=== PATIENT | male | born 1945 | race Caucasian/White ===

== ENCOUNTER 2018-08-28 08:02 | Inpatient (IN) | payer MEDICARE, OTHER, SELFPAY ==
[2018-06-06 13:35] VITALS: BMI 32.3
[2018-08-19 12:55] VITALS: BMI 32.3
[2018-08-28] VITALS (20 sets, daily range): BP systolic 93–135; BP diastolic 57–94; PULSE 75–117; RESP 10–19; TEMP 36.2–37.3; O2SAT 93–97; BMI 33.0
[2018-08-28] MEDS: LACTATED RINGERS 1,000 ML 42 ML IV ×2 (08:54→11:50)
[2018-08-28] MEDS: VANCOMYCIN 1,000 MG/200 ML FROZ.PIGGY 200 MG IV ×2 (09:11→21:16)
--- NOTE | 2018-08-28 10:00 | DI.RAD.S_ITS ---
PROCEDURE: XR SHOULDER RT MIN 2V INDICATIONS: prosthesis placement TECHNIQUE: 2 views of the shoulder were acquired. COMPARISON: [facility] [place]quang Grigsby, CR, XR SHOULDER 2+ VIEWS RIGHT, 05/27/2017, 13:55. FINDINGS: Bones: Postsurgical changes compatible with right shoulder is noted. Orthopedic hardware is intact. No lucencies at the bone hardware interface. Soft tissues: No suspicious soft tissue calcifications. IMPRESSION: Expected postsurgical change for right shoulder arthroplasty. Dictated by: Brenda Huntley MD, PhD on 08/28/2018 at 15:02 Approved by: Brenda Huntley MD, PhD on 08/28/2018 at 15:03
[2018-08-28] MEDS: MIDAZOLAM 2 MG/2 ML VIAL IV (10:12)
[2018-08-28] MEDS: fentaNYL 100 MCG/2 ML INJ 50 MCG IV ×2 (10:12→14:13)
--- NOTE | 2018-08-28 10:14 | SUR.PREOP ---
Block start time [0955] . Monitoring initiated and maintained throughout procedure. Oxygen and medications given per anesthesiologist instructions. Patient remained stable throughout procedure, no adverse reactions noted. Block end time [1006].
[2018-08-28] MEDS: GENTAMICIN 200 MG in SODIUM CHLORIDE 0.9% 100 ML 105 ML IV (10:20)
--- NOTE | 2018-08-28 10:22 | PM.PREOP ---
Pre-operative Note Interval Note History & Physical reviewed/Exam performed by Physician: Yes Changes to H&P: No
--- NOTE | 2018-08-28 11:00 | SUR.OPER ---
Beach chair with skytron shoulder positioner. Lower body on padded OR bed. Head in foam padded head cradle, secured with straps. Non-operative arm secured <90 degrees abduction. Pillow under knees. Safety belt at thigh. Cloth tape over blanket over lower legs.
[2018-08-28] MEDS: LIDOCAINE 1% W/EPI INJ 20 ML INJ (11:07)
--- NOTE | 2018-08-28 11:13 | PM.PROC.1 ---
Procedures Date/Time Date of procedure: 08/28/18 Time of procedure: 07:55 Nerve Block Time out performed: Yes Location of anesthetic used: Local: Lido 1%-25g; Block: Ropivacaine 0.5% 15ml + Lido 2% w/ epi 5ml Amount of anesthesia used (mL): 20 Nerve blocks: brachial plexus (right Interscalene Brachial Plexus Block) Procedure successful: Yes Patient tolerated procedure: well and no complications Complications: none Additional comments: Consent obtained. Supine position with HOB elevated; pillow removed to optimize access. Monitors and O2 per NC applied. IV sedation: fentanyl 50 mcg + midazolam 1mg. Nerve stimulator, ultrasound visualization amd sterile technique utilized. Chloroprep and sterile drape. Landmarks ID'd and plexus viewed on ultrasound. Lido 1% skin wheal with 25g needle. 50mm Stimex needle too short so changed to 100mm needle. Deltoid twitch to 0.4 mAmp; pulled needle back 1mm. Negative aspiration and test dose. Total volume given 20ml: Ropivacaine 0.5% 15ml + Lidocaine 2% with epi 1:100K 5ml.
--- NOTE | 2018-08-28 13:40 | PM.OP.1 ---
Operative Date/Time/Diagnoses Date of procedure: 08/28/18 Time of procedure: 10:30 Pre-op diagnosis: Right shoulder end-stage arthritis Post-op diagnosis: same Procedure & Clinicians Procedure: Right total shoulder arthroplasty Same procedure as scheduled: Yes Indications: End-stage arthritis to the right shoulder Surgeon: Eh Andrews Die Casting Machine Operator: Khalida Mars Anesthesia Type: General and Peripheral nerve block Operative Notes Closure Type: primary Prosthetic devices, grafts, tissues, transplants, or devices: 6 mm stem with a medium glenoid and a 54/21 head Applied: drain(s) and implant(s) Estimated Blood Loss (mL): 100 Procedure in detail: On date of service, Patient was met in the holding area. The operative site was signed and witnessed by the OR staff. The surgeries once again discussed with the patient and any remaining questions they had were answered fully. Patient was taken back to the operating theater and placed on the operating table in a supine position. Great care was taken to ensure that all bony prominences were properly padded. Patient was then placed into the beach chair position. The head and neck were properly positioned and secured. A timeout was performed verifying patient's name, procedure, and the operative site. The upper extremity was then prepped and draped in the normal sterile fashion. Previously, the bony anatomy and incision were marked out as well as injected with Marcaine with epinephrine. A deltopectoral approach was performed. 10 blade was used to incise the skin and fascial tissue. A deep knife was used to continue sharp dissection until the cephalic vein was visualized. The cephalic vein was dissected free allowing us to expose the deltopectoral interval. This interval was then developed. A Whipple elevator was used to free up the deltoid of any scarring both superficially as well as deeply. The vein and the deltoid were taken laterally while the pectoralis was taken medially. This gave us good visualization of the strap muscles. The clavipectoral fascia was removed and the strap muscles were then retracted medially with the pectoralis. This gave us stabilization of the subscapularis. The circumflex vessels were ligated and the subscapularis was sharply excised off the lesser tuberosity and then tagged. Once the subscapularis was released we're able to dislocate the shoulder. Patient had end-stage arthritic changes to the humeral head as well as the glenoid with large osteophytes anterior inferiorly as well as posteriorly. A Ronger was then used to remove the osteophytes. Next, cutting guide was placed and a saw was used to remove the humeral head. Once the head was removed it was templated. A starting awl was then used to find the canal and then the humerus was reamed and broached. Trial stem was placed and a variety of heads were trialed. A protector placed for the osteotomy was then placed and and we turned our attention back to the subscapularis as well as the glenoid. The subscapularis was freed up and a 360? fashion. The degenerative anterior and inferior capsular tissue was removed. This was followed by removing the degenerative labral tissue from around the glenoid as well as the biceps insertion. This gave us good visualization of the glenoid. Glenoid trials were used until we found the appropriate fit and curvature. Next the center hole was drilled followed by reaming of the glenoid. The wound was copiously irrigated after reaming. Next the pegs were drilled and a trial glenoid was impacted into place. Once we were satisfied with the preparation of the glenoid, the final component was cemented into place. This was followed by impaction. We Return to our attention back to the humerus. The protector plate was removed and heads were trialed once again and so we found the appropriate fit. The trials were removed and bone tunnels were made into the humeral neck. #2 FiberWire were passed through the bone tunnels for eventual subscapularis repair. The final stem and head were impacted into place and the shoulder was reduced. It was taken through range of motion and was felt to be stable in both posterior translation as well as external and internal rotation with abduction. The subscapularis was repaired back to the lesser tuberosity through the bone tunnels. This was then reinforced with soft tissue repair. Part of the rotator interval was then closed. A drain was placed and the rest of the wound was closed in a layered fashion. The shoulder was then cleaned dried and dressed and the patient was taken to the PACU in stable condition. Patient will follow our postoperative protocol for total shoulder arthroplasty. S Complications: none Condition: stable Disposition: PACU Plan for aftercare: Patient will follow our postoperative protocol for total shoulder arthroplasty
--- NOTE | 2018-08-28 15:22 | PT.IPTN ---
Current Diagnoses Primary osteoarthritis, right shoulder (08/28/18) Surgery Performed Operation Date: 08/28/18 10:00 Actual Procedures p Total Shoulder Arthroplasty(Right) - Eh Andrews MD Physical Therapy Treatment Note M3 PT-IP Subjective Start: 08/28/18 16:13 Freq: NEEDED Status: Active Protocol: Document 08/28/18 15:22 AB (Rec: 08/28/18 16:19 AB [id number]) Subjective Physical Therapy Visit Type Notes pt still not on the acute floor yet.
[2018-08-28] MEDS: LACTATED RINGERS 1,000 ML 125 ML IV (16:06)
[2018-08-28] MEDS: ACETAMINOPHEN 325 MG TABLET 975 MG PO ×2 (17:04→22:42)
[2018-08-28] MEDS: DOCUSATE 100 MG CAPSULE PO (21:16)
--- NOTE | 2018-08-28 22:34 | PC.NURSE ---
Pt arrived at 0355 in AC floor. pt A&OX3. 93%RA. no n/v. no dizziness or chest pain. HR reg tachy 90-105, goes up to 115 when moving around. SBA to the BR. IVF infusing. Pt's hemovac output 260cc. notified Dr. Abraham, VTO for 1 time bolus of [address]cc. Dr. Abraham aware about pt's HR. call light in reach.
[2018-08-28] MEDS: SODIUM CHLORIDE 0.9% 500 ML 1000 ML IV (22:47)
[2018-08-29] MEDS: LACTATED RINGERS 1,000 ML 125 ML IV (02:41)
[2018-08-29] MEDS: OXYCODONE IR 5 MG TABLET PO ×3 (04:45→11:53)
[2018-08-29 04:52] VITALS: BP 120/74; PULSE 90; RESP 16; TEMP 36.8; O2SAT 93
[2018-08-29 06:01] LABS: Hematocrit 30.4 % (41-53); Hemoglobin 10.5 g/dL (13.5-17.5); Mean Corpuscular HGB Conc 34.4 % (30-36); Mean Corpuscular Hemoglobin 27.2 PG (26-34); Mean Corpuscular Volume 79.1 fL (80-100); Platelet Count 271 X10^3/uL (150-400); Red Blood Cell Count 3.85 X10^6/uL (4.5-5.9); Red Cell Distribution Width 16.5 % (11.6-14.8); White Blood Cell Count 13.1 X10^3/uL (4.5-11.0)
--- NOTE | 2018-08-29 06:40 | PC.NURSE ---
Did not sleep well last night. Stayed in the recliner all shift, declined Lorazepam offered all shift. Medicated with 5 mg. of Percolone @ 0445. No C/O pain this morning. Will cont. POc & monitor.
[2018-08-29 07:30] VITALS: BP 115/73; PULSE 86; RESP 17; TEMP 36.6; O2SAT 93
[2018-08-29] MEDS: ACETAMINOPHEN 325 MG TABLET 975 MG PO (08:13)
[2018-08-29] MEDS: DOCUSATE 100 MG CAPSULE PO (08:13)
--- NOTE | 2018-08-29 08:31 | P.DS_ITS ---
History of Present Illness Date Patient Seen: 08/29/18 Time Patient Seen: 08:31 Chief complaint: right shoulder [id number] Narrative: Right shoulder end-stage arthritis Discharge Providers Date of admission: 08/28/18 08:02 Discharge Date: 08/29/18 Primary care physician: Werner Morales MD Consults: 08/28/18 13:32 Consult to Discharge Planning Routine Comment: Consult to Physical Therapy Evaluate & Treat Comment: Physician Instructions: Evaluate and Treat Consult to Respiratory Therapy Evaluate & Treat Comment: Physician Instructions: Evaluate and treat Discharge provider: Aga Watt PA-C Summary Discharge Diagnosis: s/p TSA Hospital Course: Óscar was admitted for right total shoulder arthroplasty with Dr. Andresw, and he consented to procedure. On postop day 1. Patient was ready to discharge home. He was eating and voiding with out difficulty or assistance. Health It Specialist strength was strong and equal. He has worked with physical therapy. Exam Vital Signs (past 8 hours): - 08/29/18 04:52 Temperature 98.2 F Pulse Rate 90 Respiratory Rate 16 Blood Pressure 120/74 Pulse Oximetry 93 Fraction of Inspired Oxygen 21 Oxygen Delivery Method Room Air Oxygen Flow Rate 0 Narrative Exam Narrative: Patient is sitting up in bedside chair no acute distress. He is alert and oriented x3. Dressing on right shoulders CDI. Hemovac drain was removed and Aquacel applied. data reporting analyst strength is strong and equal. Sensation intact light touch throughout bilateral lower extremities except for right pointer finger and thumb. Pain was well-controlled last night. Objective Labs Result Diagrams: 08/29/18 05:29 Labs: Laboratory Results - last 24 hr 08/29/18 05:29 WBC 13.1 H RBC 3.85 L Hgb 10.5 L Hct 30.4 L MCV 79.1 L MCH 27.2 MCHC 34.4 RDW 16.5 H Plt Count 271 Discharge Plan Discharge Plan Patient Disposition: Home Discharge comment: DC after PT Discharge Med Rec/Prescriptions Prescriptions: New acetaminophen 325 mg Tablet 975 mg PO TID Qty: 60 RF: 0 docusate sodium 100 mg Capsule 100 mg PO BID Qty: 60 RF: 0 oxycodone 5 mg Tablet 5 mg PO Q3HR PRN (Reason: Pain, Moderate (4-6)) Qty: 60 RF: 0 hydroxyzine pamoate [Vistaril] 25 mg capsule 25 mg PO Q6-8H PRN (Reason: nausea and vomiting) Qty: 30 RF: 0 ondansetron 4 mg Tablet,Disintegrating 4 mg PO Q6HR Qty: 15 RF: 0 aspirin 81 mg tablet,delayed release (DR/EC) 81 mg PO BID Qty: 60 RF: 0 Continued acetaminophen [Tylenol Extra Strength] 500 mg Tablet 1,000 mg PO BEDTIME RF: 0 chlorpheniramine maleate 4 mg Tablet 4 mg PO BID PRN (Reason: seasonal allergies) RF: 0 fluticasone propionate [Aller-Doe] 50 mcg/actuation [place],Suspension 1 spray INTRANASAL DAILY RF: 0 Follow up/Referrals: Eh Andrews MD [Physician] - Provider Discharge Instructions Diet: Diet as Tolerated Cold/Heat Therapy: as needed Skin/Wound/Dressing Care Report to your healthcare provider any signs of infection, such as:: chills, fever and increased pain Dressing: Leave in place until post op appointment Visit Report/Discharge Packet Instructions: How to Prevent Falls, DI for Postoperative Pain, DI for Shoulder Replacement Visit Report Forms: Stroke Signs & Symptoms Discharge Data Primary Care Provider: Werner Morales Attending Provider: Eh Andrews Admit Date/Time: 08/28/18 08:02 Quality VTE Deep Vein Thrombosis/Pulmonary Embolism Present on Admission: No
--- NOTE | 2018-08-29 09:15 | PT.IIE ---
Current Diagnoses Primary osteoarthritis, right shoulder (08/28/18) Surgery Performed Operation Date: 08/28/18 10:00 Actual Procedures p Total Shoulder Arthroplasty(Right) - Eh Andrews MD Surgical History (Last Updated 06/06/18 @ 14:12 by Gabriela Zee, RN) H/O: vasectomy (Acute ~1981) History of surgical removal of ganglion cyst (Acute) Hx of arthroscopy of left knee (Acute ~1997) Hx of tonsillectomy (Acute) Status post left unicompartmental knee replacement (Acute) Status post right unicompartmental knee replacement (Acute) Medical History (Last Updated 08/19/18 @ 13:06 by Gabriela Zee RN) Infection of mouth (Acute ~05/2018) Seasonal allergies (Acute) Aortic root dilation (Acute) Arthritis (Acute) Chronic right shoulder pain (Acute) Dyshidrotic foot dermatitis (Acute) Frequent unifocal premature ventricular contractions (Acute) IFG (impaired fasting glucose) (Acute) Normal colonoscopy (Acute ~2007) Rapid heart rate (Acute) Physical Therapy Inpatient Evaluation/Re-Eval M1 PT/OT-IP Prior Functional Status Start: 08/28/18 16:13 Freq: NEEDED Status: Active Protocol: Document 08/29/18 09:15 AB (Rec: 08/29/18 12:35 AB [id number]) Medical Review Prior Functional Status Medical History Reviewed Yes Communication able to make needs known Mobility and Gait stated that he is independent with all mobilities and ambulation without AD Social History Household Members spouse Living Arrangements House Number of Floors (Floors) One Floor Number of Stairs To Enter/Railing? 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 pt has a hurrycane pt plans on sleeping on a recliner M2 PT-IP Current Condition Start: 08/28/18 16:13 Freq: NEEDED Status: Active Protocol: Document 08/29/18 09:15 AB (Rec: 08/29/18 12:35 AB [id number]) Physical Therapy Current Condition Current Condition Evaluation Date 08/29/18 Treatment Diagnosis s/p R TSA; difficulty in walking Onset Date 08/28/18 Precautions Shoulder Precautions Sling PROM Internal Rotation to Body No External Rotation No Abduction Forward Flexion to 90 degrees Pendulums Weight Bearing Status Weight Bearing Status Non-Weight Bearing Allowed Weight Bearing Amount (enter % NWB RUE or #) (%) M3 PT-IP Subjective Start: 08/28/18 16:13 Freq: NEEDED Status: Active Protocol: Document 08/29/18 09:15 AB (Rec: 08/29/18 12:35 AB [id number]) Subjective Physical Therapy Visit Type Type Initial Evaluation Visit Start Time 09:15 Visit Stop Time 09:57 Total Visit Minutes 27 Number of PRODUCTION CONTROLLER Visits 0 Physical Therapy Visit Comments Patient Comments pt agrees to do PT Therapy Pain Assessment Pain When Pain Assessed At Rest Pain Present Pain Present Pain Reported Location Right Shoulder Intensity 2 Scale Used Numeric (1 - 10) Pain Management Techniques Apply Cold Re-positioning Timing of Activity with Medications M4 PT-IP Mobility and Gait Start: 08/28/18 16:13 Freq: NEEDED Status: Active Protocol: Document 08/29/18 09:15 AB (Rec: 08/29/18 12:35 AB [id number]) PT-Transfer Assessment Sit to and From Stand Sit to and from Stand Standby Assistance Equipment Transfer Assistive Device Gait Belt Orthotic/Prosthetic Devices or Brace: Yes Transfer Ability Level of Assist Standby Assistance Comments Mobility Comments pt stated that he will sleep on his recliner and does not want to do bed mobility training. Gait Assessment Gait Gait Assistance Required: Standby Assistance Distance (Feet) 125 Able to Maintain Weight Bearing Status Yes During Gait Assistive Devices Assistive Device Gait Belt Orthotic/Prosthetic Devices or Brace: Yes Gait Deviations General Gait Pattern Antalgic Factors Limiting Gait Function Factors Limiting Gait Function Decreased Activity Tolerance Decreased Strength Limited Range of Motion Pain Poor Balance Stair Climbing Assessment Evaluation Level of Assist On Stairs Standby Assistance Devices Stair Climbing Assistive Devices Right Railing Technique/Endurance Stair Climbing Direction Ascend and Descend Stair Climbing Technique Step Over Step Step to Step Number of Steps Climbed 3 Query Text: Stair Climbing Set # Repetitions (reps) 3 PT-Balance Assessment Sitting Balance and Reactions Static Sitting Balance Ability Good Dynamic Sitting Balance Ability Good Standing Balance and Reactions Static Standing Balance Ability Good Dynamic Standing Balance Ability Fair Device Used without AD M5 PT-IP Objective Assessments Start: 08/28/18 16:13 Freq: NEEDED Status: Active Protocol: Document 08/29/18 09:15 AB (Rec: 08/29/18 12:35 AB [id number]) Orientation Orientation/Cognition Level of Alertness Alert Orientation Name Age Birthday Month Date Year Day of Week Place Situation Language Function Ability No Deficits Noted Safety Awareness Understands Safety Issues Memory Description No Deficits Noted Gross Range of Motion Upper Extremity ROM Assessment Right Impaired Impairments RUE on sling Lower Extremity ROM Assessment Within Functional Limits Strength Lower Extremity Strength Assessment Within Functional Limits Coordination Assessment Gross Coordination Gross Coordination WNL Sensation Assessment Sensation Gross Sensation WNL Muscle Tone Muscle Tone WNL Yes M6 PT-IP Treatment Start: 08/28/18 16:13 Freq: NEEDED Status: Active Protocol: Document 08/29/18 09:15 AB (Rec: 08/29/18 12:35 AB [id number]) Physical Therapy Treatment Exercises Exercises Elbow Flexion/Extension Wrist ROM Hand ROM Education Education Provided Precautions Weight Bearing Status Post-Op Packet Safety Brace Education [place] Patient Other Treatments Other Treatment Performed pt educated on sling management; pendulum exercises M7 PT-IP Assessment and Plan Start: 08/28/18 16:13 Freq: NEEDED Status: Active Protocol: Document 08/29/18 09:15 AB (Rec: 08/29/18 12:35 AB [id number]) PT Summary Assessment and Plan Potential Rehabilitation Potential Good Status of Condition at Evaluation Stable Summary Impairments Pain ROM Strength Balance Coordination Sensation Bed Mobility Transfers Gait Activity Tolerance Assessment Summary pt requiring SBA with mobility and plans to go home with spouse to assist. pt doing well with mobility and may go home when medically stable. Goals Transfer Goal Independent Gait Goal Independent Gait Distance 250 Other Goals up/down 2 steps with R rail ascending Days to Meet Goals 3 Frequency of Treatment Frequency Of Treatment Twice a Day Treatment Plan Physical Therapy Treatment Plan Bed Mobility Training Transfer Training Gait Training Therapeutic Exercise Balance Retraining Post Op Education Discharge Planning Hot or Cold Pack Neuromuscular Re-ed Coordination Retraining Manual Therapy Other Recommendations and Next Treatment ambulation, stair climbing Focus Recommendations To Nursing Amount of Assist Needed Standby Assistance Discharge Recommendations PT Discharge Recommendations Home with Assistance Outpatient PT
--- NOTE | 2018-08-29 10:11 | PC.NURSE ---
Addendum entered by Lauren Lewis R.N. 08/29/18 13:00: Pt left unit via wheelchair at 1256 in no distress. Pt's present to drive pt home. Original Note: Addendum entered by Lauren Lewis R.N. 08/29/18 12:42: At 1220, Reviewed discharge summary with pt and his . All questions answered, no further voiced concerns. has all belongings. is ready to go home. Right shoulder aquacel dressing CDI, dressing over old hemovac site CDI. Original Note: Addendum entered by Lauren Lewis R.N. 08/29/18 10:40: Discharge summary packet given to pt to pre-read, will review when his arrives for discharge. Pt states he already has his follow up appointments made. Original Note: Day Shift- PRN Oxycodone given for 2/10 pain with rest and 5/10 pain with movement to right shoulder. Pt tolerating regular diet. Denies nausea. OOB to chair early this AM, Ambulates to BR with SBA, steady gait. Right shoulder dressing removed at 1000, Incision well approximated with Steri-strips intact. Scant drainage noted to proximal end of incision. Area cleansed with NS, Aquacel AG dressing applied per Surgical PA Lacy. Hemovac drain also removed per Surgical PA. Removed without difficulty. Area cleansed with NS, gauze and tegaderm placed over site. Pt tolerated both procedures well. RUE CMS+, still has some numbness to thumb, less than last night. Radial pulse strong, moderate front desk representative strength. PT states pt okay to discharge home. Plan for discharge after lunch and review discharge paper work with pt and his .
--- NOTE | 2018-08-29 12:24 | CM.DANOTE ---
Discharge Planning/Care Management DCP: assessment: case received this morning and discussed in Team Rounds. Pt is a 73 year old male who admitted yesterday for a planned R TSA: Surgeon: Dr. Andrews [facility] PT was seeing pt during Rounds discussion and pt was to be d/c'd today if cleared by PT. A check in now shows that pt did well with PT and is cleared for home. Pt to d/c home with his Kathi's support and she will be driving him home. He will follow up with the orthopedic team. CM Discharge Assessment Start: 08/29/18 12:22 Freq: Status: Active Protocol: Document 08/29/18 12:23 ITV (Rec: 08/29/18 12:23 ITV [id number]) Discharge Planning Assessment Advance Directives? No: Information mailed to patient Advance Directives on File No History Provided By Patient Medical Record Prior Living Arrangements House Household Members spouse Review Status In Process Next Review Type Continued Stay Review Pre-Anesthesia Assessment Start: 06/06/18 13:35 Freq: Status: Complete Protocol: Document 06/06/18 13:35 CAB (Rec: 06/06/18 14:44 CAB [id number]) Pre-Anesthesia Assessment Patient Also Known As (AKA) Bill Patient Information Reviewed Via Phone Assessment Assessment Completed With Patient Diagnostic Results BMP/CMP CBC EKG Primary Care Provider Werner Morales Medical Clearance Received Yes Seen Specialist in Last 12 Months Yes Specialist Seen Copy Reader Orthopedist Comment PCP clearance 05/27/18 to med recs to be scanned to record Primary Language Turkish Waxer Tender Required No Height 171.45 cm Weight 95.254 kg Body Mass Index (BMI) 32.3 Hearing Ability Normal Visual Assist Glasses Dentition Type Full- Upper Barriers to Learning None Other Aids No Hx Anesthesia Reactions No Hx Family Anesthesia Reaction No Hx Malignant Hyperthermia No Hx Blood Transfusions No Anesthesia Review Requested No Shank Skinner No alcohol intake current alcohol intake frequency 0-2 drinks per day Smoking Status Former smoker how long ago did patient quit smoking Smoke x 1 year in 1971 Substance Use Type does not use Pain Present Pain Reported Musculoskeletal Symptoms Difficulty Walking Joint Pain Limited Range of Motion History of Falling (Recent or History of No ) Patient is completely paralyzed or No completely immobile Prosthesis or Orthotic Device Cane Mental Status Oriented to own ability Is patient on oxygen? No Does patient have BELL/SOB No Hx Sleep Apnea No Suspected Sleep Apnea No Currently Taking a Beta Perry No Can You Climb a Flight of Stairs Without No SOB Hx Chest Pain No Hx SOB No Hx Syncope or Dizziness No Anti-Coagulant Therapy No Has a Copy Reader Yes: Dr. Lorenzo Cardiac Testing Yes: ECHO 05/27/18 Hx Pacemaker/ICD No Pacemaker Rep Required? No Cardiac Clearance Received Yes Comment Cardiac clearance, ECHO to [facility] recs to be scanned in record Diet Type At Home Regular dysphagia No Bladder Pattern Nocturia Urinary Catheter Present No Hx Urinary Self Catheterization No Diabetes No Hx Drug Resistant Organism No Presence of External or Internal Medical No Devices Have you traveled outside the [facility] in the last 30 days? Marital Status Lives With spouse Prior Living Arrangements House Number of Floors (Floors) One Floor Number of Stairs To Enter/Railing? none Support System Child/Children Lauren/God Friend(s) Spouse Does the Patient Have Assistance After Yes Surgery Patient Discharge Plan Description Return Home Comment Pt advised overnight length of stay per surgeon's office Feels Safe in Current Environment Yes Been Physically Hurt or Threatened By a No Person in Current Environment Do you have thoughts of harming yourself None or others? Are you currently considering suicide? No Do you have a plan to hurt yourself or No Plan others? Do You Have Any Spiritual Beliefs That No May Affect Your HC Choices? Do You Have Any Cultural Practices That No May Affect Your HC Choices? Spiritual Referral None Comment Syn[employer] Who Can We Speak to About Patient's Care Family, friends Identifying Code for Release of Patient Declines to issue Information Health Care Proxy/Next of Kin Kathi Figueroa () Health Care Proxy or [phone] Emergency Contact Name Kathi Figueroa () Emergency Contact or [phone] Advance Directives? No: Information mailed to patient Advance Directives on File No Requested Patient Bring Advanced Yes Directives DOS Power of Mandrel Maker No PAC Instructions Durable medical equipment Medications to take/avoid Nasal antibiotic No ETOH/petroleum product on skin DOS NPO Post-op transportation Pre-surgical wash Sensory aids Sturdy shoes/comfortable clothes Do not bring valuables and remove jewelry Document 08/19/18 12:55 CAB (Rec: 08/19/18 13:18 CAB [id number]) Pre-Anesthesia Assessment Patient Also Known As (AKA) Bill Patient Information Reviewed Via Phone Assessment Assessment Completed With Patient Diagnostic Results BMP/CMP CBC EKG Primary Care Provider Werner Morales Medical Clearance Received Yes Seen Specialist in Last 12 Months Yes Specialist Seen Copy Reader Orthopedist Comment PCP clearance 05/27/18 to [facility] recs to be scanned to record Primary Language Turkish Waxer Tender Required No Height 171.45 cm Weight 95.254 kg Body Mass Index (BMI) 32.3 Hearing Ability Normal Visual Assist Glasses Dentition Type Full- Upper Barriers to Learning None Other Aids No Hx Anesthesia Reactions No Hx Family Anesthesia Reaction No Hx Malignant Hyperthermia No Hx Blood Transfusions No Anesthesia Review Requested No Shank Skinner No alcohol intake current alcohol intake frequency 0-2 drinks per day Smoking Status Former smoker how long ago did patient quit smoking Smoke x 1 year in 1971 Substance Use Type does not use Pain Present Pain Reported Musculoskeletal Symptoms Difficulty Walking Joint Pain Limited Range of Motion History of Falling (Recent or History of No ) Patient is completely paralyzed or No completely immobile Prosthesis or Orthotic Device Cane Mental Status Oriented to own ability Is patient on oxygen? No Does patient have BELL/SOB No Hx Sleep Apnea No Suspected Sleep Apnea No Currently Taking a Beta Perry No Can You Climb a Flight of Stairs Without No SOB Hx Chest Pain No Hx SOB No Hx Syncope or Dizziness No Anti-Coagulant Therapy No Has a Copy Reader Yes: Dr. Lorenzo Cardiac Testing Yes: ECHO 05/27/18 Hx Pacemaker/ICD No Pacemaker Rep Required? No Cardiac Clearance Received Yes Comment Cardiac clearance, ECHO to med recs to be scanned in record Diet Type At Home Regular dysphagia No Bladder Pattern Nocturia Urinary Catheter Present No Hx Urinary Self Catheterization No Diabetes No Hx Drug Resistant Organism No Presence of External or Internal Medical No Devices Have you traveled outside the [facility] in the last 30 days? Marital Status Lives With spouse Prior Living Arrangements House Number of Floors (Floors) One Floor Number of Stairs To Enter/Railing? none Support System Child/Children Lauren/God Friend(s) Spouse Does the Patient Have Assistance After Yes Surgery Patient Discharge Plan Description Return Home Comment Pt advised overnight length of stay per surgeon's office Feels Safe in Current Environment Yes Been Physically Hurt or Threatened By a No Person in Current Environment Do you have thoughts of harming yourself None or others? Are you currently considering suicide? No Do you have a plan to hurt yourself or No Plan others? Do You Have Any Spiritual Beliefs That No May Affect Your HC Choices? Do You Have Any Cultural Practices That No May Affect Your HC Choices? Spiritual Referral None Comment Synagogue Who Can We Speak to About Patient's Care Family, friends Identifying Code for Release of Patient Declines to issue Information Health Care Proxy/Next of Kin Kathi Figueroa () Health Care Proxy or [phone] Emergency Contact Name Kathi Figueroa () Emergency Contact or [phone] Advance Directives? No: Information mailed to patient Advance Directives on File No Requested Patient Bring Advanced Yes Directives DOS Power of Mandrel Maker No PAC Instructions Durable medical equipment Medications to take/avoid Nasal antibiotic No ETOH/petroleum product on skin DOS NPO Post-op transportation Pre-surgical wash Sensory aids Sturdy shoes/comfortable clothes Do not bring valuables and remove jewelry
== END 2018-08-29 12:56 | disposition home or self-care (01) | DRG 483 ==
PROVIDERS: Admitting Provider Orthopaedic Surgery; PCP Internal Medicine; Visit Provider Orthopaedic Surgery
PROC: 0RQJ0ZZ Repair Right Shoulder Joint, Open Approach (ICD-10-PCS; CPT 23472; principal; 2018-08-28 10:00)
DX: M19.011 Primary osteoarthritis, right shoulder (principal); I49.3 Ventricular premature depolarization; I77.819 Aortic ectasia, unspecified site; Z87.891 Personal history of nicotine dependence
CPT/HCPCS: 36415; 64415; 73020; 85027; 94762; 97161; C1776; J0330; J1100; J1170; J2250; J2405; J2704; J3010; J3370